=== PATIENT | female | born 1995 ===

== ENCOUNTER 2017-10-17 02:21 | Emergency (ER) | payer MEDICAID, OTHER ==
--- NOTE | 2017-10-17 03:23 | C.PDOC ---
History Of Present Illness 21 year old female presents to the emergency department for psychiatric evaluation. Patient states she had an argument with her boyfriend and then took a razor and cut her left forearm. She has a history of cutting, but denies intent to kill herself. She admits to drinking tonight. Denies drug use. Time Seen by Provider: 10/17/17 02:40 Chief Complaint (Nursing): Psychiatric Evaluation History Per: Patient History/Exam Limitations: no limitations Onset/Duration Of Symptoms: Hrs Current Symptoms Are (Timing): Still Present Suicide/Self Injury Attempted (Context): Cut Wrists Modifying Factor(s): Alcohol Recent travel outside of the [place]: No Past Medical History Reviewed: Historical Data, Nursing Documentation, Vital Signs Vital Signs: Last Vital Signs Temp 98 F 10/17/17 02:27 Pulse 93 H 10/17/17 02:27 Resp 20 10/17/17 02:27 BP 117/78 10/17/17 02:27 Pulse Ox 98 10/17/17 04:29 - Medical History PMH: Bipolar Disorder Surgical History: No Surg Hx Family History: States: No Known Family Hx - Social History Hx Tobacco Use: No Hx Alcohol Use: Yes Hx Substance Use: No Review Of Systems Skin: Positive for: Lesions (to forearm) Psych: Positive for: Other (alcohol intoxication). Negative for: Suicidal ideation Physical Exam - Physical Exam Appears: Non-toxic, No Acute Distress, Other (emotional, tearful on exam) Skin: Warm, Dry Head: Atraumatic, Normacephalic Eye(s): bilateral: Normal Inspection Oral Mucosa: Moist Neck: Normal ROM Chest: Symmetrical Cardiovascular: Rhythm Regular, No Murmur Respiratory: Normal Breath Sounds, No Rales, No Rhonchi, No Wheezing Gastrointestinal/Abdominal: Soft, No Tenderness, No Guarding Extremity: Normal ROM, No Tenderness, No Swelling, Other (3 cm superficial abrasion to left forearm, no active bleeding) Pulses: Left Radial: Normal, Right Radial: Normal Neurological/Psych: Oriented x3, Normal Speech, No Other (focal deficits) Gait: Steady ED Course And Treatment - Laboratory Results Result Diagrams: 10/17/17 04:11 O2 Sat by Pulse Oximetry: 98 (RA) Pulse Ox Interpretation: Normal Medical Decision Making Medical Decision Making: impression: depresssive episode Plan: * Labs * Crisis evaluation Progress: Labs ordered and reviewed Discussed case with bunk house worker [id number] PES evaluated patient and case discussed with Dr Peña. Patient is stable for discharge. Dx: borderline personality disorder and alcohol use. Can follow up at [facility] Disposition Counseled Patient/Family Regarding: Diagnosis, Need For Followup - Disposition Referrals: [facility] [Outside] [facility] [Outside] Disposition: HOME/ ROUTINE Disposition Time: 04:29 Condition: STABLE Additional Instructions: Follow up with the clinic in 2-5 days for further evaluation. Instructions: Borderline Personality Disorder, Alcohol Use - When Is Drinking a Problem? Forms: Stripe (Portuguese) - POA Present On Arrival: None - Clinical Impression Clinical Impression: Borderline personality disorder, Alcohol use - PA / PUBLICITY MANAGER / Resident Statement MD/DO has reviewed & agrees with the documentation as recorded. - Scribe Statement The provider has reviewed the documentation as recorded by the Scribe (Mary So) All medical record entries made by the Scribe were at my direction and personally dictated by me. I have reviewed the chart and agree that the record accurately reflects my personal performance of the history, physical exam, medical decision making, and the department course for this patient. I have also personally directed, reviewed, and agree with the discharge instructions and disposition.
[2017-10-17 04:20] LABS: BASO # 0.1 K/uL (0.0-0.2); BASO % 1.9 % (0.0-2.0); EOS # 0.1 K/uL (0.0-0.7); EOS % 1.2 % (0.0-4.0); HEMOGLOBIN 12.7 g/dL (11.0-16.0); LYMPH # 1.5 K/uL (1.0-4.3); LYMPH % 24.1 % (20.0-40.0); MEAN CELL VOLUME 87.1 fL (81.0-99.0); MEAN CORPUSCULAR HEMOGLOBIN 28.8 pg (27.0-31.0); MEAN PLATELET VOLUME 9.4 fL (7.2-11.7); MONO # 0.5 K/uL (0.0-0.8); MONO % 7.6 % (0.0-10.0); NEUT # 4.2 K/uL (1.8-7.0); NEUT % 65.2 % (50.0-75.0); RBC 4.4 Mil/uL (3.80-5.20); RED CELL DISTRIBUTION WIDTH 14.2 % (11.5-14.5); WHITE BLOOD COUNT 6.4 K/uL (4.8-10.8)
[2017-10-17 04:21] LABS: SQUAMOUS EPITHIAL < 1 /hpf (0-5); URINE BILIRUBIN NEGATIVE (NEGATIVE); URINE BLOOD 1+ (NEGATIVE); URINE CLARITY Clear (Clear); URINE COLOR Straw (YELLOW); URINE GLUCOSE (UA) NORMAL (Normal); URINE LEUKOCYTE ESTERASE NEG Leu/uL (Negative); URINE PROTEIN NEGATIVE (NEGATIVE); URINE UROBILINOGEN NORMAL mg/dL (0.2-1.0)
[2017-10-17 04:26] LABS: HCG,QUALITATIVE URINE NEGATIVE (NEGATIVE)
[2017-10-17 04:31] LABS: ALB/GLOB RATIO 1.3 (1.0-2.1); ALBUMIN 4.5 g/dL (3.5-5.0); ALT/SGPT 19 U/L (9-52); AST/SGOT 26 U/L (14-36); BLOOD UREA NITROGEN 6 mg/dL (7-17); CALCIUM 9.1 mg/dl (8.6-10.4); GFR AFRICAN-AMERICAN > 60; GFR NON-AFRICAN AMERICAN > 60
[2017-10-17 04:32] LABS: BARBITURATES, UR NEGATIVE (NEGATIVE); BENZODIAZEPINES, UR NEGATIVE (NEGATIVE); OPIATES, UR NEGATIVE (NEGATIVE); PHENCYCLIDINE, UR NEGATIVE (NEGATIVE)
[2017-10-17] MEDS ORDERED: Bacitracin 500 Units/gm Oint Foilpak UD ONE (04:45)
[2017-10-17 05:24] VITALS: BP 107/68; PULSE 87; RESP 16; TEMP 98.1
[2017-10-17 05:52] VITALS: O2SAT 98
== END 2017-10-17 05:35 | disposition home or self-care (01) ==
LOC: C.ER 02:21
DX: F60.3 Borderline personality disorder (principal); Z72.89 Other problems related to lifestyle